=== PATIENT | female | born 1955 | race Caucasian/White ===

== ENCOUNTER 2019-06-28 12:48 | Emergency (ER) | payer OTHER ==
[~2019-06-28] VITALS: Ht 167.6 cm; Wt 68.9 kg
[2019-06-28] MEDS ORDERED: HYDROCODONE/APAP 7.5MG-325MG 1 EA TAB PO PRN (13:00)
--- NOTE | 2019-06-28 13:44 | Diagnostic Imaging Report ---
Exam: Right elbow radiographs-3 views History: Status post fall, query fracture. Comparison: None. Findings/Impression: There is a comminuted, intra-articular, displaced and angle related fracture of the proximal ulna and olecranon process. There is approximately 1.3 cm of maximal displacement of the olecranon process from the proximal ulna. There is a large elbow joint effusion with surrounding soft tissue edema. Mild bony irregularity at the lateral epicondyle seen on on a frontal view may represent avulsion fracture from the lateral collateral ligament or could be projectional. Signed by: Dr. Cesar Anguiano MD on 06/28/2019 1:42 PM
== END 2019-06-28 14:12 | disposition home or self-care (01) ==
LOC: ER 12:48
DX: S52.201A Unspecified fracture of shaft of right ulna, initial encounter for closed fracture (principal); S50.01XA Contusion of right elbow, initial encounter; W19.XXXA Unspecified fall, initial encounter; Y92.488 Other paved roadways as the place of occurrence of the external cause
CPT/HCPCS: 99282

== ENCOUNTER 2020-01-15 14:24 | Emergency (ER) | payer OTHER ==
[~2020-01-15] VITALS: Ht 167.6 cm; Wt 68.9 kg
[2020-01-15] MEDS ORDERED: SODIUM CHLORIDE 0.9% 1000ML 1,000 ML IV STA (14:28)
[2020-01-15] MEDS ORDERED: MECLIZINE HCL 12.5 MG TAB PO ONE (14:30)
[2020-01-15] MEDS ORDERED: ONDANSETRON HCL INJ 2MG/ML 2ML 2 MG/ML VIAL IV STA (14:36)
--- NOTE | 2020-01-15 14:43 | Emergency Department Note ---
History of Present Illnes History of Present Illness Chief Complaint: General Medicine Complaints History of Present Illness This is a 64 year old female arrives to the ED with complaints of dizziness after a aerobic workout she was doing outside. She states she vomited once and was concerned about heat stroke which prompted her to call 911 and come to the ER.. Chief Complaint Comment PATIENT IN FROM HOME VIA HFD FOR EVALUATION OF DIZZINESS AND VOMITING X 1 ; PATIENT STATES THAT SHE WENT FOR A MILE WALK AND THEN WAS WORKING OUT OUTSIDE WHEN SHE BEGAN TO FEEL DIZZY. 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 Any updates have been documented here. Past Medical History Recent Fever: No Clinical Suspicion of Infectio: No New/Unexplained Change in Ment: No Past Medical History: Hyperlipedemia Past Surgical History: None Other Surgery: RIGHT ELBOW AND KNEE SURGERY Social History Smoking Cessation: Never Smoker Counseling Performed: No Physically hurt or threatened: No Review of Systems Review of Systems Constitutional: Reports no symptoms EENTM: Reports no symptoms Cardiovascular: Reports no symptoms Respiratory: Reports no symptoms Gastrointestinal: Reports no symptoms Genitourinary: Reports no symptoms Musculoskeletal: Reports no symptoms Integumentary: Reports no symptoms Neurological: Reports as per HPI Psychological: Reports no symptoms Endocrine: Reports no symptoms Hematological/Lymphatic: Reports no symptoms Physical Exam Related Data Allergies: Coded Allergies: No Known Allergies (Unverified , 06/28/19) Triage Vital Signs Vital Signs Date Time Temp Pulse Resp B/P (MAP) Pulse Ox O2 Delivery O2 Flow Rate FiO2 01/15/20 14:36 98.3 61 18 108/74 100 Room Air Vital signs reviewed: Yes Physical Exam CONSTITUTIONAL Constitutional: Present well-developed, Present well-nourished HENT HENT: Present normocephalic, Present atraumatic, Present oropharynx clear/moist, Present nose normal HENT L/R: Present left ext ear normal, Present right ext ear normal EYES Eyes: Reports PERRL, Reports conjunctivae normal NECK Neck: Present ROM normal PULMONARY Pulmonary: Present effort normal, Present breath sounds normal CARDIOVASCULAR Cardiovascular: Present regular rhythm, Present heart sounds normal, Present capillary refill normal, Present normal rate GASTROINTESTINAL Abdominal: Present soft, Present nontender, Present bowel sounds normal GENITOURINARY Genitourinary: Present exam deferred SKIN Skin: Present warm, Present dry MUSCULOSKELETAL Musculoskeletal: Present ROM normal NEUROLOGICAL Neurological: Present alert, Present oriented x 3, Present no gross motor or sensory deficits PSYCHOLOGICAL Psychological: Present mood/affect normal, Present judgement normal Results Laboratory Lab results reviewed: Yes Laboratory comments Laboratory Tests Test 01/15/20 15:00 01/15/20 14:42 Urine Color Yellow (YELLOW) Urine Clarity Clear (CLEAR) Urine pH 7 (5 - 7) Urine Specific [place] 1.025 (1.010-1.025) Urine Protein Negative (NEGATIVE) Urine Glucose (UA) Negative (NEGATIVE) Urine Ketones 1+ (NEGATIVE) Urine Blood Negative (NEGATIVE) Urine Nitrite Negative (NEGATIVE) Urine Bilirubin Negative (NEGATIVE) Urine Urobilinogen 0.2 mg/dL (0.2 - 1) Urine Leukocyte Esterase Negative (NEGATIVE) Urine RBC 0-5 /HPF (0-5) Urine WBC 0-5 /HPF (0-5) Urine Epithelial Cells Few /LPF (NONE) Urine Bacteria Few /HPF (NONE) Urine Mucus Few (RARE) White Blood Count 11.74 x10e3/uL (4.8-10.8) Red Blood Count 4.29 x10e6/uL (3.6-5.1) Hemoglobin 12.9 g/dL (12.0-16.0) Hematocrit 39.4 % (34.2-44.1) Mean Corpuscular Volume 91.8 fL (81-99) Mean Corpuscular Hemoglobin 30.1 pg (28-32) Mean Corpuscular Hemoglobin Concent 32.7 g/dL (31-35) Red Cell Distribution Width 12.1 % (11.7-14.4) Platelet Count 256 x10e3/uL (140-360) Neutrophils (%) (Auto) 74.2 % (38.7-80.0) Lymphocytes (%) (Auto) 17.1 % (18.0-39.1) Monocytes (%) (Auto) 6.8 % (4.4-11.3) Eosinophils (%) (Auto) 0.9 % (0.0-6.0) Basophils (%) (Auto) 0.4 % (0.0-1.0) Neutrophils # (Auto) 8.7 (2.1-6.9) Lymphocytes # (Auto) 2.0 (1.0-3.2) Monocytes # (Auto) 0.8 (0.2-0.8) Eosinophils # (Auto) 0.1 (0.0-0.4) Basophils # (Auto) 0.1 (0.0-0.1) Absolute Immature Granulocyte (auto 0.07 x10e3/uL (0-0.1) Sodium Level 142 mmol/L (136-145) Potassium Level 3.6 mmol/L (3.5-5.1) Chloride Level 109 mmol/L (98-107) Carbon Dioxide Level 19 mmol/L (22-29) Anion Gap 17.6 mmol/L (8-16) Blood Urea Nitrogen 14 mg/dL (7-26) Creatinine 0.78 mg/dL (0.57-1.11) Estimat Glomerular Filtration Rate > 60 ML/MIN (60-) BUN/Creatinine Ratio 18 (6-25) Glucose Level 104 mg/dL (74-118) Calcium Level 9.1 mg/dL (8.4-10.2) Total Bilirubin 0.6 mg/dL (0.2-1.2) Aspartate Amino Transf (AST/SGOT) 26 IU/L (5-34) Alanine Aminotransferase (ALT/SGPT) 24 IU/L (0-55) Alkaline Phosphatase 58 IU/L (40-150) Creatine Kinase 75 IU/L (29-168) Creatine Kinase MB 1.00 ng/mL (0-5.0) Troponin I < 0.001 ng/mL (0-0.300) Total Protein 7.0 g/dL (6.5-8.1) Albumin 4.3 g/dL (3.5-5.0) Globulin 2.7 g/dL (2.3-3.5) Albumin/Globulin Ratio 1.6 (0.8-2.0) Procedures 12 Lead ECG Interpretation ECG Interpretation : ECG: ECG 1 Dance Historian: Interpreted by ED physician Rhythm: sinus tachycardia Rate: normal QRS axis: normal ST segments normal: Yes T waves normal: Yes Other findings: no other findings Clinical Impression: normal ECG Assessment & Plan Medical Decision Making MDM 64-year-old female arrived to the ED after having complaints of dizziness, vertigo and nausea. Patient's symptoms nearly resolved upon arrival to the ED. IV fluids and meclizine given with complete resolution. Patient did not want a CT scan of her brain and she was neurologically intact. Patient's lab work is unremarkable with no evidence of rhabdomyolysis noted. Renal functional normal, CPK normal, patient and return steady gait. Patient discharged home on Zofran and meclizine to take as needed for dizziness/vertigo. Outpatient neurology follow-up given. Assessment & Plan Final Impression: (1) Heat exhaustion (2) Vertigo Depart Disposition: HOME, SELF-CARE Last Vital Signs Date Time Temp Pulse Resp B/P (MAP) Pulse Ox O2 Delivery O2 Flow Rate FiO2 01/15/20 14:36 98.3 61 18 108/74 100 Room Air Home Meds Active Scripts Ondansetron Hcl* (ZOFRAN*) 4 Mg Tablet, 4 MG SL Q6H PRN for NAUSEA, #14 MG 0 Refills Prov:ELISSA ELIZABETH DO 01/15/20 Meclizine Hcl (MECLIZINE HCL) 12.5 Mg Tablet, 25 MG PO Q8HR PRN for DIZZINESS, #14 TAB Prov:ELISSA ELIZABETH DO 01/15/20 Medications in the ED Meclizine HCl 25 mg ONCE ONCE PO ; Start 01/15/20 at 14:30; Stop 01/15/20 at 14:31; Status DC Sodium Chloride 1,000 ml @ 0 mls/hr Q0M STAT IV ; Start 01/15/20 at 14:28; Stop 01/15/20 at 14:30; Status DC Ondansetron HCl 4 mg NOW STAT IV ; Start 01/15/20 at 14:36; Stop 01/15/20 at 14:40; Status DC ELISSA ELIZABETH DO Jan 15, 2020 14:43
[2020-01-15 14:59] LABS: BASOPHILS # (AUTO) 0.1 (0.0-0.1); BASOPHILS % 0.4 % (0.0-1.0); EOSINOPHILS # (AUTO) 0.1 (0.0-0.4); EOSINOPHILS % 0.9 % (0.0-6.0); HEMATOCRIT 39.4 % (34.2-44.1); HEMOGLOBIN 12.9 g/dL (12.0-16.0); LYMPHOCYTES % 17.1 % (18.0-39.1); MEAN CORPUSCULAR HEMOGLOBIN 30.1 pg (28-32); MEAN CORPUSCULAR HGB CONC 32.7 g/dL (31-35); MEAN CORPUSCULAR VOLUME 91.8 fL (81-99); MONOCYTES # (AUTO) 0.8 (0.2-0.8); MONOCYTES % 6.8 % (4.4-11.3); NEUTROPHILS # (AUTO) 8.7 (2.1-6.9); NEUTROPHILS % 74.2 % (38.7-80.0); PLATELET COUNT 256 x10e3/uL (140-360); RED BLOOD COUNT 4.29 x10e6/uL (3.6-5.1); RED CELL DISTRIBUTION WIDTH 12.1 % (11.7-14.4)
[2020-01-15 15:17] LABS: CLARITY,URINE CLEAR (CLEAR); COLOR,URINE YELLOW (YELLOW); LEUKOCYTE ESTERASE ,URINE NEGATIVE (NEGATIVE); NITRITE,URINE NEGATIVE (NEGATIVE)
[2020-01-15 15:18] LABS: BILIRUBIN,URINE NEGATIVE (NEGATIVE); KETONES,URINE 1+ (NEGATIVE); PROTEIN,URINE DIPSTICK NEGATIVE (NEGATIVE); URINE UROBILINOGEN 0.2 mg/dL (0.2 - 1)
[2020-01-15 15:24] LABS: ALANINE AMINOTRANSFERASE 24 IU/L (0-55); ALBUMIN 4.3 g/dL (3.5-5.0); ALBUMIN/GLOBULIN RATIO 1.6 (0.8-2.0); ALKALINE PHOSPHATASE 58 IU/L (40-150); ANION GAP 17.6 mmol/L (8-16); BLOOD UREA NITROGEN 14 mg/dL (7-26); BUN/CREATININE RATIO 18 (6-25); CALCIUM 9.1 mg/dL (8.4-10.2); CARBON DIOXIDE 19 mmol/L (22-29); CHLORIDE 109 mmol/L (98-107); CREATINE KINASE 75 IU/L (29-168); CREATININE, SERUM 0.78 mg/dL (0.57-1.11); EST GLOMERULAR FILTRATION RATE > 60 ML/MIN (60-); GLUCOSE 104 mg/dL (74-118); POTASSIUM 3.6 mmol/L (3.5-5.1); SODIUM 142 mmol/L (136-145)
[2020-01-15 15:30] LABS: BACTERIA,URINE FEW /HPF; EPITHELIAL CELLS,URINE FEW /LPF; MUCUS,URINE FEW (RARE); RBC,URINE 0-5 /HPF (0-5); WBC,URINE (MAN) 0-5 /HPF (0-5)
--- OUTSIDE RECORDS SUMMARY | 2020-01-15 15:42 | XMS REPORT | Continuity of Care Document ---
Author Author Guillermo Tobias [employer] Information [employer] Address Unknown Phone Unavailable Care Team Providers Care Product Marketing Coordinator Name Role Phone [employer] Information Exchange Unavailable Un available Problems Problem Status Onset Date Classification Date Reported Comments Source Z12.31 - ENCNTR SCREEN MAMMOGRAM FOR MA Active 01/09/2019 [facility] Medications No Data Provided for This Section Allergies, Adverse Reactions, Alerts No Known Medication Allergies Immunizations No Data Provided for This Section Results No Data Provided for This Section Pathology Reports No Data Provided for This Section Diagnostic Reports Report Value Date Source Bone Density DXA [employer] MA BONE DENSITY ASSESSMENT: 01/12/2019 CLINICAL DATA: Post menopausal. /Z13.820 Encounter For Screening For Osteoporosis RISK FACTORS: race. FINDINGS: Bone density evaluation was performed 01/12/2019 on the right femur neck using a Hologic unit. The BMD average for the exam is 0.795 g/cm2. The T-score is -0.50 and the Z-score is 0.90. This matches the World Health Organization's criteria for normal bone density and places the patient within normal limits of fracture risk. An additional bone density evaluation was performed 01/12/2019 on the left femur neck using a Hologic unit. The BMD average for the exam is 0.748 g/cm2. The T- score is -0.90 and the Z-score is 0.50. This matches the World Health Organization's criteria for normal bone density and places the patient within normal limits of fracture risk. An additional bone density evaluation was performed 01/12/2019 on the right total femur area using a Hologic unit. The BMD average for the exam is 0.916 g/cm2. The T-score is -0.20 and the Z-score is 0.90. This matches the World Health Organization's criteria for normal bone density and places the patient within normal limits of fracture risk. An additional bone density evaluation was performed 01/12/2019 on the left total femur area using a Hologic unit. The BMD average for the exam is 0.939 g/cm2. The T-score is 0.10 and the Z-score is 1.10. This matches the World Health Organization's criteria for normal bone density and places the patient within normal limits of fracture risk. An additional bone density evaluation was performed 01/12/2019 on the AP L1-L4 region of spine using a Hologic unit. The BMD average for the exam is 0.951 g/cm2. The T-score is -0.90 and the Z-score is 0.70. This matches the World Health Organization's criteria for normal bone density and places the patient within normal limits of fracture risk. IMPRESSION: BONE DENSITY WITHIN NORMAL LIMITS Patient is at normal risk for fracture. This exam was interpreted at [id number] for [facility]. Woodrow Glasgow M.D. mn/penrad:01/12/2019 13:52:43 Grease Renderer(s): Marium Portillo [facility] 01/12/2019 [facility] Breast Mammo Scrn ARTEMIO incl CAD MA BILATERAL DIGITAL SCREENING MAMMOGRAM WITH CAD: 01/12/2019 CLINICAL: /Z12.31 Encounter For Screening Mammogram For Malignant Neoplasm Of Breast. Current study was evaluated with a Computer Aided Detection (CAD) system. COMPARISON:Comparison is made to exam dated: 10/04/2014 mammogram - [facility]. TECHNIQUE: Mammographic views were obtained using digital acquisition. Current study was also evaluated with a Computer Aided Detection (CAD) system. FINDINGS: There are scattered fibroglandular densities in both breasts. There are benign scattered densities and calcifications in both breasts. No significant masses, calcifications, or other findings are seen in either breast. There has been no significant interval change. IMPRESSION: BENIGN RECOMMENDATION:There is no mammographic evidence of malignancy. A 1 year screening mammogram is recommended.(01/13/2020) [id number] [facility] Woodrow Glasgow M.D. mn/penrad:01/13/2019 11:41:08 Grease Renderer(s): Marium Portillo, [facility] letter sent: BI-RADS 1/2 Mammogram BI-RADS: 2 Benign 01/12/2019 [facility] Consultation Notes No Data Provided for This Section Discharge Summaries No Data Provided for This Section History and Physicals No Data Provided for This Section Vital Signs No Data Provided for This Section Encounters Location Location Details Encounter Type Encounter Number Reason For Visit Attending Provider ADM Date DC Date Status Source [facility] [id number] Joy Ghadiri 01/12/2019 01/13/2019 [facility] Procedures No Data Provided for This Section Assessment and Plan No Data Provided for This Section Plan of Care No Data Provided for This Section Social History Social History Date Source No data available for this section 01/13/2019 [facility] Family History No Data Provided for This Section Advance Directives No Data Provided for This Section Functional Status No Data Provided for This Section
--- OUTSIDE RECORDS SUMMARY | 2020-01-15 15:42 | XMS REPORT | Clinical Summary ---
Author Author [facility] Organization [facility] Address Unknown Phone Unavailable Care Team Providers Care Surface Grinder Name Role Phone Joy Mac MD PCP Allergies No Known Allergies Medications End Date Status Medication Sig Dispensed Refills Start Date Active multivitamin with Take 1 tablet 0 minerals (ONE DAILY by mouth COMPLETE ORAL) daily. Active cyanocobalamin (VITAMIN Take 1,000 0 B-12) 1000 MCG tablet mcg by mouth daily. 02/02/2020 Active atorvastatin (Lipitor) 20 Take 1 tablet 90 tablet 0 mg tablet (20 mg total) 0 by mouth daily for 90 days. Default OP ins 03/18/2019 Discontinued (Reorder) simvastatin (ZOCOR) 10 MG Take 1 tablet 90 tablet 0 tablet (10 mg total) 9 by mouth nightly for 90 days. 06/29/2019 Discontinued simvastatin (ZOCOR) 10 MG TAKE 1 90 tablet 0 tablet TABLET(10 MG) 9 BY MOUTH EVERY NIGHT 10/02/2019 Discontinued simvastatin (ZOCOR) 10 MG TAKE 1 90 tablet 0 tablet TABLET(10 MG) 0 BY MOUTH EVERY NIGHT 11/04/2019 Discontinued simvastatin (ZOCOR) 10 MG TAKE 1 90 tablet 0 tablet TABLET(10 MG) 0 BY MOUTH EVERY NIGHT Active Problems Not on file Encounters Care Team Description Date Type Specialty Fransisca Banda MA Colon cancer screening; Family history of colon cancer 12/24/2019 Orders Only Internal Medicine Joy Mac MD 11/04/2019 Orders Only Internal Medicine oJy Mac MD Other hyperlipidemia (Primary Dx); Colon cancer screening; Family history of colon cancer; Weight gain 11/02/2019 Office Visit Internal Medicine 11/02/2019 Travel Joy Mac MD 10/30/2019 Telephone Internal Medicine Joy Mac MD 10/29/2019 Telephone Internal Medicine 10/29/2019 Travel Joy Mac MD 10/02/2019 Refill Internal Medicine Joy Mac MD 06/28/2019 Refill Internal Medicine Joy Mac MD Other hyperlipidemia (Primary Dx) 03/25/2019 Orders Only Internal Medicine Joy Mac MD 03/23/2019 Telephone Access Joy Mac MD 03/18/2019 Refill Internal Medicine Fransisca Banda MA 02/24/2019 Telephone Internal Medicine Fransisca Banda MA Encounter for screening for osteoporosis 02/05/2019 Orders Only Internal Medicine Fransisca Banda MA Encounter for screening mammogram for ma lignant neoplasm of breast 01/14/2019 Orders Only Internal Medicine after 01/14/2019 Family History Medical History Relation Name Comments Parkinsonism Father at age 85 Colon cancer Sister Relation Name Status Comments Father Mother Alive Sister Alive Social History Date Tobacco Use Types Packs/Day Years Used Never Smoker Smokeless Tobacco: Never Used Drinks/Week oz/Week Comments Alcohol Use 2 Glasses of wine 2.0 3 times per week Yes Sex Assigned at Date Recorded Female 12/11/2018 8:10 PM CDT Industry Job Start Date Occupation Not on file Not on file Not on file Travel End Travel History Travel Start No recent travel history available. Last Filed Vital Signs Reading Time Taken Comments Vital Sign 115/78 11/02/2019 12:05 PM CDT Blood Pressure 68 11/02/2019 12:05 PM CDT Pulse 37 C (98.6 F) 11/02/2019 12:05 PM CDT Temperature 16 11/02/2019 12:05 PM CDT Respiratory Rate 99% 11/02/2019 12:05 PM CDT Oxygen Saturation - - Inhaled Oxygen Concentration 71.2 kg (157 lb) 11/02/2019 12:05 PM CDT Weight 166.4 cm (5' 5.5") 11/02/2019 12:05 PM CDT Height 25.73 11/02/2019 12:05 PM CDT Body Mass Index Plan of Treatment Health Maintenance Due Date Last Done Comments CERVICAL CANCER SCREENING 1977 BREAST CANCER SCREENING 2006 SHINGLES VACCINES (#1) 2006 INFLUENZA VACCINE 02/18/2020 COLONOSCOPY SCREENING 12/14/2029 12/15/2019 Procedures Comments Procedure Name Priority Date/Time Associated Diag nosis COLONOSCOPY-EXTERNAL Routine 12/15/2019 TSH REFLEX TO T4F Routine 11/02/2019 Weight gain 12:42 PM CDT LIPID PANEL Routine 11/02/2019 Other hyperlipi demia 12:42 PM CDT COMPREHENSIVE METABOLIC Routine 11/02/2019 Other hyperlipidemia PANEL 12:42 PM CDT LIPID PANEL Routine 04/06/2019 Other hyperlipi demia 10:19 AM DENTURE PACKER COMPREHENSIVE METABOLIC Routine 04/06/2019 Other hyperlipidemia PANEL 10:19 AM DENTURE PACKER after 01/14/2019 Results * COLONOSCOPY-EXTERNAL (12/15/2019) Narrative Performed At This result has an attachment that is n ot available. * TSH reflex to T4 (11/02/2019 12:42 PM CDT) TSH reflex to 3.56 0.40 - 4.50 mIU/L [facility] [place] Specimen Blood Narrative Performed At FASTING:YES [facility] FASTING: YES Resulting Agency Comment Performing Organization Information: Site ID: [id number] Name: [facility] Address: [address] [place] [id number] Director: Germán Arzate Performing Organization Address City/State/Zipcode Ph one Number [employer] [address] [phone] * Lipid panel (11/02/2019 12:42 PM CDT) Only the most recent of 2 results within the time period is included. Cholesterol, 234 (H) <200 mg/dL [facility] total [employer] [place] HDL cholesterol 65 > OR = 50 mg/dL [facility] [place] Triglycerides 80 <150 mg/dL [facility] [place] LDL cholesterol 151 (H) mg/dL (calc) [facility] calculated Comment: DIAGNOSTICS Reference range: <100 [place] Desirable range <100 mg/dL for primary prevention; <70 mg/dL for patients with CHD or diabetic patients with > or = 2 CHD risk factors. LDL-C is now calculated using the Adrian-Wilder calculation, which is a validated novel method providing better accuracy than the Friedewald equation in the estimation of LDL-C. Adrian SS et al. TIP. 2013;310(19): 7674-0458 (http://education.Ideatory.com/faq/NCK288) Cholesterol/HDL 3.6 <5.0 (calc) [facility] [place] Non-HDL 169 (H) <130 mg/dL (calc) [facility] cholesterol Comment: DIAGNOSTICS For patients with diabetes [place] plus 1 major ASCVD risk factor, treating to a non-HDL-C goal of <100 mg/dL (LDL-C of <70 mg/dL) is considered a therapeutic option. Specimen Blood Narrative Performed At FASTING:YES [facility] FASTING: YES Resulting Agency Comment Performing Organization Information: Site ID: [id number] Name: [facility] Address: [address] [place] [phone] Director: Germán Arzate Performing Organization Address City/State/Zipcode Ph one Number [facility] [employer] [address] [phone] * Comprehensive metabolic panel (11/02/2019 12:42 PM CDT) Only the most recent of 2 results within the time period is included. Glucose 95 65 - 99 mg/dL [facility] Comment: DIAGNOSTICS Fasting [place] reference interval BUN 17 7 - 25 mg/dL [facility] Creatinine 0.76 0.50 - 0.99 mg/dL [facility] Comment: DIAGNOSTICS For patients >49 years of age, [place] the reference limit for Creatinine is approximately 13% higher for people identified as -[place]. EGFR Non-Afr. 83 > OR = 60 [facility] [place] mL/min/1.73m2 [facility] EGFR 97 > OR = 60 [facility] [place] mL/min/1.73m2 [facility] BUN/creatinine NOT APPLICABLE 6 - 22 (calc) [facility] ratio [facility] Sodium 142 135 - 146 mmol/L [facility] Potassium 4.3 3.5 - 5.3 mmol/L [facility] [place] Chloride 106 98 - 110 mmol/L [facility] [place] CO2 31 20 - 32 mmol/L [facility] [place] Calcium 9.5 8.6 - 10.4 mg/dL [facility] [place] Protein 6.8 6.1 - 8.1 g/dL [facility] [place] Albumin, S 4.4 3.6 - 5.1 g/dL [facility] [place] Globulin, total 2.4 1.9 - 3.7 g/dL [facility] (calc) [facility] [place] Albumin/globuli 1.8 1.0 - 2.5 (calc) [facility] n [facility] [place] Total bilirubin 0.7 0.2 - 1.2 mg/dL [facility] [place] Alkaline 65 37 - 153 U/L [facility] phosphatase [facility] [place] AST 21 10 - 35 U/L [facility] [place] ALT 17 6 - 29 U/L [facility] [place] Specimen Blood Narrative Performed At FASTING:YES [facility] FASTING: YES Resulting Agency Comment Performing Organization Information: Site ID: [id number] Name: [facility] Address: [address] [place] [id number] Director: Germán Arzate Performing Organization Address City/State/Zipcode Ph one Number [facility] [place] [address] [place] [phone] after 01/14/2019 Insurance Type Payer Benefit Subscriber ID Effective Phone Address Plan / Dates Group [facility] xxxxxxxxxxxx [id number] [employer] Advance Directives For more information, please contact: [phone] 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
--- OUTSIDE RECORDS SUMMARY | 2020-01-15 15:43 | XMS REPORT | Continuity of Care Document ---
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 Operator Name Role Phone NONSTAFF PCP Unavailable Huong Banda MA Attphys Unavailable Estefania THEODORE, Joy Attphys ELISSA ELIZABETH Attphys Unavailable Joy Mac Attphys Payers Payer Name Policy Type Policy Number Effective Date Expiration Date S kalyan [employer] [id number] xxxxxxxxxxxx 2017 00:00:00 Miguel Childress Problems Condition Name Condition Details Condition Category Status Onset Date Resolution Date Last Treatment Date Treating Clinician Comments Source Z12.31 - ENCNTR SCREEN MAMMOGRAM FOR MA Z12.31 - ENCNTR SCREEN MAMMOGRAM FOR MA Active 01/09/2019 Guillermo Tobias Diagnosis Active 2019-01-09 00:01:00 2019-01-23 07:42:00 M rianna Tobias Allergies, Adverse Reactions, Alerts This patient has no known allergies or adverse reactions. Family History Family Member Diagnosis Comments Start Date Stop Date Source Natural father Parkinsonism Miguel Childress Natural sister Colon cancer Miguel Childress Social History Social Habit Start Date Stop Date Quantity Comments Source Sex Assigned At Arlette jenkins Yazid[facility] Alcohol intake 2019-11-02 00:00:00 2019-11-02 00:00:00 Current drinker of alcohol (finding) Miguel Childress Social History 2019-01-13 04:59:00 2019-01-13 04:59:00 Guillermo Tobias Alcohol Comment 2018-12-01 00:00:00 2018-12-01 00:00:00 3 times per w [place] Miguel Childress Smoking Status Start Date Stop Date Source Never smoker Miguel Mendes t Medications Ordered Medication Name Filled Medication Name Start Date Stop Da te Current Medication? Ordering Clinician Indication Dosage Frequency Signature (SIG) Comments Components Source atorvastatin (Lipitor) 20 mg tablet 2019-11-04 00:00:0 0 2020-02-02 23:59:00 Yes 20mg QD Take 1 tablet ( 20 mg total) by mouth daily for 90 days. Default OP ins Miguel Childress cyanocobalamin (VITAMIN B-12) 1000 MCG tablet 2019-11-02 12:06:1 3 Yes 1000ug QD Take 1,000 mcg by mouth daily. Miguel Childress multivitamin with minerals (ONE DAILY COMPLETE ORAL) 2 12:03:04 Yes 1{tbl} QD Take 1 tablet by mouth daily. Miguel Childress simvastatin (ZOCOR) 10 MG tablet 2019-10-02 00:00:00 2019-10 00:00:00 No TAKE 1 TABLET(10 MG) BY MOUTH EVERY NIGHT Miguel Childress simvastatin (ZOCOR) 10 MG tablet 2019-06-29 00:00:00 2019-09 00:00:00 No TAKE 1 TABLET(10 MG) BY MOUTH EVERY NIGHT Miguel Childress simvastatin (ZOCOR) 10 MG tablet 2019-03-18 00:00:00 2019-06 00:00:00 No TAKE 1 TABLET(10 MG) BY MOUTH EVERY NIGHT Miguel Childress simvastatin (ZOCOR) 10 MG tablet 2018-12-15 00:00:00 2019-02 00:00:00 No 10mg QD Take 1 tablet (10 mg total) by mouth nightly fo r 90 days. Miguel Childress Vital Signs Vital Name Observation Time Observation Value Comments Source Systolic blood pressure 2019-11-02 12:05:00 115 mm[Hg] Miguel Childress Diastolic blood pressure 2019-11-02 12:05:00 78 mm[Hg] Miguel Childress Heart rate 2019-11-02 12:05:00 68 /min Miguel Childress Body temperature 2019-11-02 12:05:00 37 Jessica Rebecca james Yazidism Respiratory rate 2019-11-02 12:05:00 16 /min Rebecca ton Yazidism Body height 2019-11-02 12:05:00 166.4 cm Miguel Childress Body weight 2019-11-02 12:05:00 71.215 kg Miguel Childress BMI 2019-11-02 12:05:00 25.73 kg/m2 Miguel Childress Oxygen saturation in Arterial blood by Pulse oximetry 11-01 12:05:00 99 /min Miguel Childress Procedures Procedure Date / Time Performed Performing Clinician Sourc e COLONOSCOPY-EXTERNAL 2019-12-15 00:00:00 Alonso Moya COMPREHENSIVE METABOLIC PANEL 2019-11-02 12:42:00 Salina Mac jeny Miguel Childress LIPID PANEL 2019-11-02 12:42:00 Joy aMc Ok [facility]odist TSH REFLEX TO T4F 2019-11-02 12:42:00 Joy Mac COMPREHENSIVE METABOLIC PANEL 2019-04-06 10:19:00 Salina Mac LIPID PANEL 2019-04-06 10:19:00 Joy Mac Ok [facility]odist Plan of Care Planned Activity Planned Date Details Comments Source Future Scheduled Test 2029-12-14 00:00:00 COLONOSCOPY SCREEN ING [code = COLONOSCOPY SCREENING] Rivera [facility] Future Scheduled Test 2020-02-18 00:00:00 INFLUENZA VACCINE [code = INFLUENZA VACCINE] Rivera [facility] Future Scheduled Test 2006 00:00:00 BREAST CANCER SCRE ENING [code = BREAST CANCER SCREENING] [facility] Future Scheduled Test 2006 00:00:00 SHINGLES VACCINES (#1) [code = SHINGLES VACCINES (#1)] Rivera [facility] Future Scheduled Test 1977 00:00:00 Screening for pina gnant neoplasm of cervix (procedure) [code = 344082748] Miguel Mendes t Encounters Start Date/Time End Date/Time Encounter Type Admission Type Attendi [facility] Care Department Encounter ID Source 2019-11-02 00:00:00 2019-11-02 00:00:00 Outpatient [facility] [id number] Miguel Childress 2019-06-28 12:48:00 2019-06-28 14:12:00 Departed Emergency Room 1 ELISSA [facility]IZABETH [facility] [id number] [facility] 2019-01-12 09:09:00 2019-01-12 23:59:00 Outpatient Joy Mac [id number] Results Test Description Test Time Test Comments Results Result Comments Source Comprehensive metabolic panel 2019-11-03 09:27:00 Test Item Glucose (test code = 2345-7) 95 mg/dL 65-99 Fasting reference interval BUN (test code = 3094-0) 17 mg/dL 7-25 Creatinine (test code = 2160-0) 0.76 mg/dL 0.5-0.99 For patients >49 years of age, the reference limitfor Creatinine is approximately 13% higher for peopleidentified as -Kazakh. EGFR Non-Afr. Kazakh (test code = 2775) 83 > OR = 60 mL /min/1.73m2 EGFR (test code = 72553-4) 97 > OR = 60 mL/min/1.73m2 BUN/creatinine ratio (test code = 3097-3) NOT APPLICABLE 6- 22 (marleny c) Sodium (test code = 2951-2) 142 mmol/L 135-146 Potassium (test code = 2823-3) 4.3 mmol/L 3.5-5.3 Chloride (test code = 2074-0) 106 mmol/L 98-110 CO2 (test code = 2027-9) 31 mmol/L 20-32 Calcium (test code = 69327-3) 9.5 mg/dL 8.6-10.4 Protein (test code = 2885-2) 6.8 g/dL 6.1-8.1 Albumin, S (test code = 1751-7) 4.4 g/dL 3.6-5.1 Globulin, total (test code = 06142-9) 2.4 1.9- 3.7 g/dL (c alc) Albumin/globulin ratio (test code = 1759-0) 1.8 1.0- 2.5 ( calc) Total bilirubin (test code = 1974-) 0.7 mg/dL 0.2-1.2 Alkaline phosphatase (test code = 6768-6) 65 U/L 37-153 AST (test code = 0-8) 21 U/L 10-35 ALT (test code = 1742-6) 17 U/L 6-29 TK (test code = TK) FASTING:YESFASTING: YES RAC (test code = RAC) Performing Organization Info rmation: Site ID: [facility] Address: [address] [place] [id number] Director: Germán Arzate [place] [facility] [id number] 09:27:00* Test Item Value Reference Range Interpretation Comments Cholesterol, total (test code = 2093-3) 234 mg/dL <200 H HDL cholesterol (test code = 2085-9) 65 mg/dL > OR = 50 Triglycerides (test code = 2571-8) 80 mg/dL <150 LDL cholesterol calculated (test code = 78780-9) 151 mg/dL (calc) H Reference range: <100 Desirable range <100 mg/dL for primary prevention; <70 mg/dL for patients with CHD or diabetic patients with > or = 2 CHD risk factors. LDL-C is now calculated using the Adrian-Meño calculation, which is a validated novel method providing better accuracy than the Friedewald equation in the estimation of LDL-C. Adrian SS et al. TIP. 2013;310(19): 9154-1960 (http:/ /education.[employer]/faq/BRA838) Cholesterol/HDL ratio (test code = 9830-1) 3.6 <5.0 (calc) Non-HDL cholesterol (test code = 35888-2) 169 <130 mg/dL ( calc) H For patients with diabetes plus 1 major ASCVD risk factor, treating to a non-HDL-C goal of <100 mg/dL (LDL-C of <70 mg/dL) is considered a therapeutic option. TK (test code = TK) FASTING:YESFASTING: YES RAC (test code = RAC) Performing Organization Info rmation: Site ID: [facility]GA [facility]: [facility] Address: [address] [place] [id number] Director: Germán Arzate Lab Interpretation (test code = 46131-3) Abnormal [place] [facility] to [id number] 09:27:00* Test Item Value Reference Range Interpretation Comments TSH reflex to FT4 (test code = 3016-3) 3.56 0.40- 4.50 mIU/ L TK (test code = TK) FASTING:YESFASTING: YES RAC (test code = RAC) Performing Organization Info rmation: Site ID: [facility]: [facility] Address: [address] [place] [id number] Director: Germán Arzate [place] Karmen SALINAS [id number] 13:38:00 [place] [address] Patient Name: ARVIN ANTONY MR #: [id number] : 1955 Age/Sex: 63/F Req #: [id number] Adm Physician: Ordered by: CATHIE JENSEN NP Report #: [id number] Location: ER Room/Bed: Procedure: [id number] DX/ELBOW RIGHT COMPLETE Exam Date: 06/28/19 Exam Time: 1320 REPORT STATUS: Signed Exam: Right elbow radiographs-3 views History: Status post fall, query f racture. Comparison: None. Findings/Impression: There is a comminute d, intra-articular, displaced and angle related fracture of the proximal ulna and olecranon process. There is approximately 1.3 cm of maximal displacement o f the olecranon process from the proximal ulna. There is a large elbow joint e ffusion with surrounding soft tissue edema. Mild bony irregularity at the l ateral epicondyle seen on on a frontal view may represent avulsion fracture fr om the lateral collateral ligament or could be projectional. Signed b y: Dr. Eusebia Guevara MD on 06/28/2019 1:42 PM Dictated By: EUSEBIA GUEVARA MD Mana ctronically Signed By: EUSEBIA GUEVARA MD on 06/28/19 1342 Transcribed By: FANNIE ramos 06/28/19 1342 COPY TO: CATHIE JENSEN NP
[2020-01-15] MEDS ORDERED: MECLIZINE HCL12.5 MG PO (16:31)
[2020-01-15] MEDS ORDERED: ZOFRAN4 MG SL (16:31)
== END 2020-01-15 17:01 | disposition home or self-care (01) ==
LOC: ER 14:40
DX: R42 Dizziness and giddiness (principal); T67.5XXA Heat exhaustion, unspecified, initial encounter; R11.2 Nausea with vomiting, unspecified; E78.5 Hyperlipidemia, unspecified
CPT/HCPCS: 36415; 80053; 81001; 82550; 82553; 84484; 85025; 93005; 99284; J2405; J7030; J8597